=== PATIENT | female | born 1975 | race Caucasian/White ===

== ENCOUNTER 2023-04-27 23:27 | Inpatient (IN) | payer BC ==
[2023-04-28] MEDS ORDERED: Sodium Chloride 0.9% 10 ML Syringe FLUSH PRN (00:22)
[2023-04-28] MEDS ORDERED: Ondansetron 4 MG/2 ML SDV IVPUSH ONE (00:22)
[2023-04-28] MEDS ORDERED: Sodium Chloride 0.9% 1,000 ML IV SCH (00:30)
[2023-04-28] MEDS ORDERED: Aluminum Hydroxide/Magnesium Hydroxide/Simethicone Susp 30 ML Cup PO ONE (01:01)
[2023-04-28] MEDS ORDERED: Famotidine 20 MG/2 ML SDV IVPUSH ONE (01:01)
[2023-04-28 01:32] LABS: BASOPHILS ABSOLUTE AUTO 0.1 K/mm3 (0.0-0.2); BASOPHILS PERCENT AUTO 0.4 % (0.0-1.0); EOSINOPHILS PERCENT AUTO 0.2 % (0.0-6.0); HEMATOCRIT 47.8 % (37.0-47.0); HEMOGLOBIN 17.2 gm/dl (12.0-16.0); IMMATURE GRAN ABSOLUTE AUTO 0.04 K/mm3 (0.00-0.05); IMMATURE GRAN PERCENT AUTO 0.3 % (0.0-0.4); LYMPHOCYTES ABSOLUTE AUTO 1.8 K/mm3 (1.0-4.8); LYMPHOCYTES PERCENT AUTO 13.8 % (24.0-44.0); MEAN CORPUSCULAR HEMOGLOBIN 28.7 pg (28.0-32.0); MEAN CORPUSCULAR VOLUME 79.8 fl (83.0-99.0); MEAN PLATELET VOLUME 10.2 fl (9.4-12.3); MONOCYTES ABSOLUTE AUTO 0.8 K/mm3 (0.0-0.8); MONOCYTES PERCENT AUTO 5.9 % (0.0-8.0); NEUTROPHILS ABSOLUTE AUTO 10.5 K/mm3 (1.8-7.7); NEUTROPHILS PERCENT AUTO 79.4 % (41.0-71.0); PLATELET COUNT,PLT 376 K/mm3 (150-400); RED BLOOD CELL COUNT 5.99 M/mm3 (4.10-5.30); WHITE BLOOD CELL COUNT,WBC 13.16 K/mm3 (3.9-11.3)
[2023-04-28 01:55] LABS: ANION GAP 18.7 (5-15); BUN/CREATININE RATIO 10.4 (14-18); CREATININE 2.7 mg/dL (0.55-1.02); POTASSIUM,K 2.7 mEq/L (3.5-5.1)
[2023-04-28 01:56] LABS: ALBUMIN 3.6 g/dl (3.4-5.0); BILIRUBIN TOTAL 0.5 mg/dL (0.2-1.0); CALCIUM 8.9 mg/dL (8.5-10.1); EST CRCL DRUG DOSING (CG) 24.11 mL/min; PROTEIN TOTAL,TP 7.3 g/dl (6.4-8.2)
[2023-04-28] MEDS ORDERED: Sodium Chloride 0.9% 1,000 ML IV ONE (02:03)
[2023-04-28] MEDS: Potassium Chloride 10 MEQ in Premix Bag 1 BAG IV SCH ×4 (02:15→05:41)
[2023-04-28 05:02] LABS: APPEARANCE,URINE SLT CLOUDY (Clear); BILIRUBIN,URINE 1+ (Negative); COLOR,URINE YELLOW (Yellow); GLUCOSE,URINE NEGATIVE (Negative); KETONES,URINE 1+ (Negative); LEUKOCYTE ESTERASE,URINE NEGATIVE (Negative); NITRITE,URINE NEGATIVE (Negative); OCCULT BLOOD,URINE NEGATIVE (Negative); PH,URINE 5.5 (5.0-8.0); PROTEIN,URINE 2+ (Negative); UROBILINOGEN,URINE 0.2 (0.2-1.0)
[2023-04-28 05:37] LABS: BACTERIA,URINE MODERATE /hpf (FEW); HYALINE CASTS,URINE 50-75 /lpf (0-5); MUCUS,URINE FEW /hpf (FEW); RBC,URINE 0-5 /hpf (0-5)
[2023-04-28] MEDS ORDERED: Sodium Chloride 0.9% 500 ML ONE (06:09)
[2023-04-28] MEDS ORDERED: Sodium Chloride 0.9% 500 ML IV ONE (06:15)
[2023-04-28 06:45] LABS: ANION GAP 13.3 (5-15); BUN/CREATININE RATIO 13.8 (14-18); CALCIUM 7.5 mg/dL (8.5-10.1); CREATININE 2.1 mg/dL (0.55-1.02); POTASSIUM,K 3.3 mEq/L (3.5-5.1)
[2023-04-28] MEDS ORDERED: Ondansetron 4 MG/2 ML SDV IV PRN (14:31)
[2023-04-28] MEDS ORDERED: Ondansetron 4 MG Tab.DIS PO PRN (14:31)
[2023-04-28] MEDS ORDERED: Acetaminophen 325 MG Tab PO PRN (14:31)
[2023-04-28] MEDS: Heparin Sodium 5,000 Units/ML Vial SUBCUT SCH ×2 (15:29→23:30)
[2023-04-28] MEDS: NS + KCl 20mEq/L 1,000 ML IV SCH ×2 (15:29→23:56)
[2023-04-28] MEDS ORDERED: Witch Hazel Medicated Pads 40/Jar TOP PRN (18:37)
[2023-04-28] MEDS: Vancomycin 125 MG Cap PO SCH (20:39)
[2023-04-29] MEDS: Levothyroxine 125 MCG Tab PO SCH ×2 (04:39→05:06)
[2023-04-29] MEDS: Liothyronine 5 MCG Tab PO SCH ×2 (04:40→08:01)
[2023-04-29 06:56] LABS: BASOPHILS PERCENT AUTO 0.2 % (0.0-1.0); EOSINOPHILS PERCENT AUTO 0.3 % (0.0-6.0); HEMATOCRIT 37.8 % (37.0-47.0); IMMATURE GRAN ABSOLUTE AUTO 0.02 K/mm3 (0.00-0.05); IMMATURE GRAN PERCENT AUTO 0.3 % (0.0-0.4); LYMPHOCYTES ABSOLUTE AUTO 2.5 K/mm3 (1.0-4.8); LYMPHOCYTES PERCENT AUTO 41.2 % (24.0-44.0); MEAN CORPUSCULAR HEMOGLOBIN 28.3 pg (28.0-32.0); MEAN CORPUSCULAR HGB CONC 34.9 g/dl (32.0-36.0); MEAN CORPUSCULAR VOLUME 80.9 fl (83.0-99.0); MEAN PLATELET VOLUME 10.5 fl (9.4-12.3); MONOCYTES ABSOLUTE AUTO 0.4 K/mm3 (0.0-0.8); MONOCYTES PERCENT AUTO 6.7 % (0.0-8.0); NEUTROPHILS ABSOLUTE AUTO 3.1 K/mm3 (1.8-7.7); NEUTROPHILS PERCENT AUTO 51.3 % (41.0-71.0); RED BLOOD CELL COUNT 4.67 M/mm3 (4.10-5.30); WHITE BLOOD CELL COUNT,WBC 6.11 K/mm3 (3.9-11.3)
[2023-04-29 07:05] LABS: ANION GAP 14.1 (5-15); BUN/CREATININE RATIO 14.2 (14-18); CALCIUM 7.8 mg/dL (8.5-10.1); CREATININE 1.2 mg/dL (0.55-1.02); EST CRCL DRUG DOSING (CG) 54.25 mL/min; MAGNESIUM 1.6 mg/dL (1.8-2.4); POTASSIUM,K 3.1 mEq/L (3.5-5.1)
[2023-04-29 07:18] LABS: HEMOGLOBIN 13.2 gm/dl (12.0-16.0); PLATELET COUNT,PLT 230 K/mm3 (150-400)
[2023-04-29] MEDS: Heparin Sodium 5,000 Units/ML Vial SUBCUT SCH ×3 (07:59→23:47)
[2023-04-29] MEDS ORDERED: Magnesium Sulfate/Water 2 GM in Premix Bag 1 BAG IV ONE (08:00)
[2023-04-29] MEDS: Vancomycin 125 MG Cap PO SCH ×4 (08:01→20:58)
[2023-04-29] MEDS: buPROPion 150 MG Tab.ER PO SCH (08:04)
[2023-04-29] MEDS: Saccharomyces Boulardii (Probiotic) 250 MG Cap PO SCH (08:09)
[2023-04-29] MEDS: NS + KCl 20mEq/L 1,000 ML IV SCH (08:10)
[2023-04-29] MEDS: Propranolol 60 MG Cap.ER PO SCH (08:11)
[2023-04-29] MEDS: VILAZODONE HCL 40 MG PO SCH (09:24)
[2023-04-29] MEDS: Potassium Chloride 10 MEQ in Premix Bag 1 BAG IV SCH ×4 (10:30→16:28)
[2023-04-29] MEDS ORDERED: Sodium Chloride 0.9% 250 ML IV ONE (16:09)
[2023-04-29] MEDS ORDERED: Cyclobenzaprine 10 MG Tab PO SCH (21:00)
[2023-04-30 00:16] VITALS: PULSE 77
[2023-04-30 04:35] LABS: BASOPHILS PERCENT AUTO 0.2 % (0.0-1.0); EOSINOPHILS PERCENT AUTO 0.2 % (0.0-6.0); HEMATOCRIT 35.7 % (37.0-47.0); HEMOGLOBIN 12.6 gm/dl (12.0-16.0); IMMATURE GRAN ABSOLUTE AUTO 0.03 K/mm3 (0.00-0.05); IMMATURE GRAN PERCENT AUTO 0.5 % (0.0-0.4); LYMPHOCYTES ABSOLUTE AUTO 2.6 K/mm3 (1.0-4.8); LYMPHOCYTES PERCENT AUTO 40.6 % (24.0-44.0); MEAN CORPUSCULAR HEMOGLOBIN 28.4 pg (28.0-32.0); MEAN CORPUSCULAR HGB CONC 35.3 g/dl (32.0-36.0); MEAN CORPUSCULAR VOLUME 80.4 fl (83.0-99.0); MEAN PLATELET VOLUME 10.3 fl (9.4-12.3); MONOCYTES ABSOLUTE AUTO 0.4 K/mm3 (0.0-0.8); MONOCYTES PERCENT AUTO 6.1 % (0.0-8.0); NEUTROPHILS ABSOLUTE AUTO 3.3 K/mm3 (1.8-7.7); NEUTROPHILS PERCENT AUTO 52.4 % (41.0-71.0); PLATELET COUNT,PLT 216 K/mm3 (150-400); RED BLOOD CELL COUNT 4.44 M/mm3 (4.10-5.30); WHITE BLOOD CELL COUNT,WBC 6.36 K/mm3 (3.9-11.3)
[2023-04-30 04:42] VITALS: BP 131/71
[2023-04-30 05:06] LABS: ANION GAP 13.9 (5-15); CALCIUM 7.9 mg/dL (8.5-10.1); CREATININE 0.9 mg/dL (0.55-1.02); EST CRCL DRUG DOSING (CG) 72.34 mL/min; MAGNESIUM 1.7 mg/dL (1.8-2.4); POTASSIUM,K 2.9 mEq/L (3.5-5.1)
[2023-04-30] MEDS: Levothyroxine 125 MCG Tab PO SCH (06:22)
[2023-04-30] MEDS ORDERED: Magnesium Sulfate/Water 4 GM in Premix Bag 1 BAG IV ONE (07:32)
[2023-04-30] MEDS: Heparin Sodium 5,000 Units/ML Vial SUBCUT SCH (08:31)
[2023-04-30] MEDS: Vancomycin 125 MG Cap PO SCH ×2 (08:32→12:20)
[2023-04-30] MEDS: Propranolol 60 MG Cap.ER PO SCH (08:32)
[2023-04-30] MEDS: Saccharomyces Boulardii (Probiotic) 250 MG Cap PO SCH (08:32)
[2023-04-30] MEDS: buPROPion 150 MG Tab.ER PO SCH (08:33)
[2023-04-30] MEDS: Liothyronine 5 MCG Tab PO SCH (08:33)
[2023-04-30] MEDS ORDERED: Sodium Chloride 0.9% 500 ML IV ONE (08:45)
[2023-04-30] MEDS ORDERED: Potassium Chloride 20 MEQ Tab.ER PO SCH (09:00)
[2023-04-30] MEDS: VILAZODONE HCL 40 MG PO SCH (09:08)
[2023-04-30] MEDS: Potassium Chloride 10 MEQ in Premix Bag 1 BAG IV SCH ×4 (09:10→13:17)
== END 2023-04-30 16:45 | disposition home or self-care (01) | DRG 248 ==
LOC: JD.ED 23:27 → JD.MS 04-28 12:57 → OBSVTOIN 04-29 12:32 → JD.MS 04-29 16:56
PROVIDERS: ADMIT Student in an Organized Health Care Education/Training Program; ATTEND Student in an Organized Health Care Education/Training Program
DX: A04.72 Enterocolitis due to Clostridium difficile, not specified as recurrent (principal); N17.9 Acute kidney failure, unspecified; K21.9 Gastro-esophageal reflux disease without esophagitis; E86.0 Dehydration; E87.6 Hypokalemia; F32.A Depression, unspecified; I10 Essential (primary) hypertension; E03.9 Hypothyroidism, unspecified; J10.1 Influenza due to other identified influenza virus with other respiratory manifestations; E83.42 Hypomagnesemia; Q60.0 Renal agenesis, unilateral; Z79.899 Other long term (current) drug therapy; Z98.891 History of uterine scar from previous surgery
CPT/HCPCS: 36415; 80048; 80053; 81001; 83690; 83735; 84132; 84703; 85025; 87045; 87046; 87086; 87324; 87493; 87899; 96361; 96365; 96366; 96375; 99284; 99284-25; A9270-GY; J1644; J2405; J3475; J3480; J3490; J7030; J7040; J7050

== ENCOUNTER 2023-05-11 18:58 | Emergency (ER) | payer BC ==
[2023-05-11] MEDS: Sodium Chloride 0.9% 10 ML Syringe FLUSH PRN (19:45)
[2023-05-11] MEDS: Ondansetron 4 MG/2 ML SDV IVPUSH ONE (19:53)
[2023-05-11] MEDS: Sodium Chloride 0.9% 1,000 ML IV STA (19:53)
[2023-05-11 20:10] LABS: BASOPHILS PERCENT AUTO 0.2 % (0.0-1.0); EOSINOPHILS ABSOLUTE AUTO 0.2 K/mm3 (0.0-0.4); EOSINOPHILS PERCENT AUTO 1.7 % (0.0-6.0); HEMATOCRIT 39.7 % (37.0-47.0); HEMOGLOBIN 13.9 gm/dl (12.0-16.0); IMMATURE GRAN ABSOLUTE AUTO 0.05 K/mm3 (0.00-0.05); IMMATURE GRAN PERCENT AUTO 0.4 % (0.0-0.4); LYMPHOCYTES ABSOLUTE AUTO 1.1 K/mm3 (1.0-4.8); LYMPHOCYTES PERCENT AUTO 7.4 % (24.0-44.0); MEAN CORPUSCULAR HEMOGLOBIN 28.5 pg (28.0-32.0); MEAN CORPUSCULAR VOLUME 81.5 fl (83.0-99.0); MEAN PLATELET VOLUME 10.1 fl (9.4-12.3); MONOCYTES ABSOLUTE AUTO 0.6 K/mm3 (0.0-0.8); MONOCYTES PERCENT AUTO 4.3 % (0.0-8.0); NEUTROPHILS ABSOLUTE AUTO 12.3 K/mm3 (1.8-7.7); PLATELET COUNT,PLT 223 K/mm3 (150-400); RED BLOOD CELL COUNT 4.87 M/mm3 (4.10-5.30); WHITE BLOOD CELL COUNT,WBC 14.24 K/mm3 (3.9-11.3)
[2023-05-11 20:32] LABS: A/G RATIO 1.2 (1-2); ALANINE AMINOTRANSFERASE,ALT 30 U/L (14-59); ALBUMIN 3.8 g/dl (3.4-5.0); ALKALINE PHOSPHATASE 61 U/L (46-116); ANION GAP 15.1 (5-15); ASPARTATE AMNIOTRANSFERASE,AST 15 U/L (15-37); BILIRUBIN TOTAL 0.5 mg/dL (0.2-1.0); BLOOD UREA NITROGEN,BUN 13 mg/dL (7-18); BUN/CREATININE RATIO 14.4 (14-18); C-REACTIVE PROTEIN <0.2 mg/dL (<1.0); CALCIUM 8.7 mg/dL (8.5-10.1); CARBON DIOXIDE,CO2 27 mEq/L (21-32); CHLORIDE,CL 101 mEq/L (98-107); CREATININE 0.9 mg/dL (0.55-1.02); EST CRCL DRUG DOSING (CG) 72.34 mL/min; ESTIMATED GFR 79 mL/min (>60); GLUCOSE RANDOM 100 mg/dL (70-99); MAGNESIUM 1.9 mg/dL (1.8-2.4); POTASSIUM,K 3.1 mEq/L (3.5-5.1); PROTEIN TOTAL,TP 6.9 g/dl (6.4-8.2); SODIUM,NA 140 mEq/L (136-145)
[2023-05-11] MEDS: Prochlorperazine 10 MG/2 ML SDV IVPUSH ONE (21:15)
[2023-05-11] MEDS: diphenhydrAMINE 50 MG/ML SDV IVPUSH ONE (21:47)
[2023-05-11] MEDS: diphenhydrAMINE 50 MG/ML SDV ONE (21:47)
[2023-05-11] MEDS: Potassium Chloride 20 MEQ Tab.ER PO ONE (22:22)
[2023-05-11 22:41] VITALS: BP 124/85; PULSE 74
== END 2023-05-11 22:41 | disposition home or self-care (01) ==
LOC: JD.ED 18:58
DX: R11.2 Nausea with vomiting, unspecified (principal); R19.7 Diarrhea, unspecified; I10 Essential (primary) hypertension; K21.9 Gastro-esophageal reflux disease without esophagitis; Z79.899 Other long term (current) drug therapy
CPT/HCPCS: 36415; 80053; 83735; 85025; 86140; 87493; 96361; 96374; 96375; 99284; A9270; J0780; J1200; J2405; J3490; J7030; 99283

== ENCOUNTER 2024-01-29 16:20 | Emergency (ER) | payer BC ==
[2024-01-29 17:46] LABS: EOSINOPHILS PERCENT AUTO 0.5 % (0.0-6.0); HEMATOCRIT 45.9 % (37.0-47.0); HEMOGLOBIN 15.9 gm/dl (12.0-16.0); IMMATURE GRAN ABSOLUTE AUTO 0.02 K/mm3 (0.00-0.05); IMMATURE GRAN PERCENT AUTO 0.3 % (0.0-0.4); LYMPHOCYTES ABSOLUTE AUTO 1.2 K/mm3 (1.0-4.8); LYMPHOCYTES PERCENT AUTO 18.7 % (24.0-44.0); MEAN CORPUSCULAR HEMOGLOBIN 29.1 pg (28.0-32.0); MEAN CORPUSCULAR HGB CONC 34.6 g/dl (32.0-36.0); MEAN CORPUSCULAR VOLUME 84.1 fl (83.0-99.0); MEAN PLATELET VOLUME 10.1 fl (9.4-12.3); MONOCYTES ABSOLUTE AUTO 0.6 K/mm3 (0.0-0.8); MONOCYTES PERCENT AUTO 8.6 % (0.0-8.0); NEUTROPHILS ABSOLUTE AUTO 4.7 K/mm3 (1.8-7.7); NEUTROPHILS PERCENT AUTO 71.9 % (41.0-71.0); PLATELET COUNT,PLT 287 K/mm3 (150-400); RED BLOOD CELL COUNT 5.46 M/mm3 (4.10-5.30); WHITE BLOOD CELL COUNT,WBC 6.53 K/mm3 (3.9-11.3)
[2024-01-29] MEDS: diphenhydrAMINE 50 MG/ML SDV IVPUSH ONE (17:50)
[2024-01-29] MEDS: Metoclopramide 10 MG/2 ML SDV IVPUSH ONE (17:52)
[2024-01-29] MEDS: HYDROmorphone 0.5 MG/0.5 ML Syringe IVPUSH ONE (17:54)
[2024-01-29] MEDS: Lactated Ringers 1,000 ML IV SCH (17:56)
[2024-01-29 18:05] LABS: HEMOGLOBIN A1C 5.5 %
[2024-01-29 18:06] LABS: A/G RATIO 1.1 (1-2); ALANINE AMINOTRANSFERASE,ALT 24 U/L (14-59); ALBUMIN 3.7 g/dl (3.4-5.0); ALKALINE PHOSPHATASE 64 U/L (46-116); ANION GAP 11.9 (5-15); ASPARTATE AMNIOTRANSFERASE,AST 11 U/L (15-37); BILIRUBIN TOTAL 0.5 mg/dL (0.2-1.0); BLOOD UREA NITROGEN,BUN 13 mg/dL (7-18); BUN/CREATININE RATIO 11.8 (14-18); C-REACTIVE PROTEIN 0.79 mg/dL (<0.30); CALCIUM 8.3 mg/dL (8.5-10.1); CARBON DIOXIDE,CO2 28 mEq/L (21-32); CHLORIDE,CL 101 mEq/L (98-107); CREATININE 1.1 mg/dL (0.55-1.02); ESTIMATED GFR 62 mL/min (>60); GLUCOSE RANDOM 114 mg/dL (70-99); LIPASE 60 U/L (16-77); POTASSIUM,K 2.9 mEq/L (3.5-5.1); SODIUM,NA 138 mEq/L (136-145)
[2024-01-29 18:09] LABS: LACTIC ACID 0.8 mmol/L (0.4-2.0)
[2024-01-29] MEDS: Potassium Chloride 10 MEQ in Premix Bag 1 BAG IV SCH (19:18)
[2024-01-29] MEDS: Dextrose 5%-Lactated Ringers 1,000 ML IV SCH (19:18)
[2024-01-29 21:43] VITALS: BP 110/70; PULSE 68
== END 2024-01-29 21:43 | disposition home or self-care (01) ==
LOC: JD.ED 16:20
DX: T50.905A Adverse effect of unspecified drugs, medicaments and biological substances, initial encounter (principal); E87.6 Hypokalemia; E03.9 Hypothyroidism, unspecified; Z86.16 Personal history of COVID-19; Z79.899 Other long term (current) drug therapy
CPT/HCPCS: 36415; 80053; 83036; 83605; 83690; 83735; 85025; 86140; 96361; 96365; 96366; 96375; 99283; J1171; J1200; J2765; J3480; J7120; J7121